=== PATIENT | female | born 1960 | race Caucasian/White ===

== ENCOUNTER 2018-12-03 08:23 | Emergency (ER) | payer SELFPAY ==
[~2018-12-03] VITALS: Ht 157.5 cm; Wt 49.9 kg
[2018-12-03 09:05] VITALS: BP 116/71
[2018-12-03] MEDS ORDERED: HYDROcodone/APAP 5 MG/325 MG (LORTAB) TAB PO ONE (10:15)
--- NOTE | 2018-12-03 10:21 | Diagnostic Imaging Report ---
INDICATION: Fall with right wrist injury. FINDINGS: AP, oblique and lateral views of the right wrist reveal comminuted fracture involving the distal metaphysis of the right radius which extends into the distal articular joint surface. There is mild volar displacement and angulation of the distal radial fracture fragment. There is also minimally displaced fracture through the ulnar styloid process. Remainder of the joint appears to be intact. IMPRESSION: Mildly displaced intra-articular fractures of distal radius and ulna. Dictated by: Dictated on workstation # [id number]
--- NOTE | 2018-12-03 10:22 | Diagnostic Imaging Report ---
INDICATION: Fall with right forearm injury. FINDINGS: AP and lateral views of the right forearm reveal comminuted fracture involving distal radial metaphysis with extension into the joint surface. There is mild volar displacement and angulation of the major distal radius fracture fragment. Mildly displaced ulnar styloid process fracture is also noted. Elbow joint is intact and no other fracture is seen. IMPRESSION: Mildly displaced intra-articular fractures of distal radius and ulna without other acute right forearm abnormality identified. Dictated by: Dictated on workstation # [id number]
--- NOTE | 2018-12-03 10:26 | Diagnostic Imaging Report ---
INDICATION: Fall with right wrist injury AP, oblique and lateral views of the right wrist are obtained. There is a comminuted intra-articular fracture involving the distal radius extension from the joint surface into the metaphysis. There is mild volar displacement and angulation of the major distal fracture fragment. There is also a mildly displaced fracture through the ulnar styloid process. The carpus is intact without additional fracture or malalignment identified. IMPRESSION: Mildly displaced comminuted intra-articular fractures of distal radius and ulna without other evidence of acute abnormality in the right hand. Dictated by: Dictated on workstation # [id number]
[2018-12-03] MEDS ORDERED: ACHD5005 PO (11:22)
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
== END 2018-12-03 11:29 | disposition home or self-care (01) ==
LOC: EDUNIT# 08:23 → ER 08:24
DX: S52.571A Other intraarticular fracture of lower end of right radius, initial encounter for closed fracture (principal); S52.691A Other fracture of lower end of right ulna, initial encounter for closed fracture; S00.83XA Contusion of other part of head, initial encounter; J45.909 Unspecified asthma, uncomplicated; Z88.2 Allergy status to sulfonamides; Z87.891 Personal history of nicotine dependence; Z90.710 Acquired absence of both cervix and uterus; V18.2XXA Unspecified pedal cyclist injured in noncollision transport accident in nontraffic accident, initial encounter
CPT/HCPCS: 73090; 73110; 73130; 99282